=== PATIENT | female | born 1970 | race Caucasian/White ===

== ENCOUNTER → 2016-09-14 | Outpatient (CLI) | payer OTHER | LOC: FIMAGING 10:55 | DX: Z12.31 Encounter for screening mammogram for malignant neoplasm of breast (principal); Z80.3 Family history of malignant neoplasm of breast | CPT/HCPCS: G0202 ==

== ENCOUNTER 2016-10-01 18:59 | Emergency (ER) | payer OTHER ==
[2016-10-01 19:07] VITALS: RESP 16; TEMP 98.2
--- NOTE | 2016-10-01 19:20 | EDPHY ---
HPI/HX/ROS/PE/MDM Narrative: CHIEF COMPLAINT: Possible allergic reaction; pruritic rash HPI: The patient is a 45 y/o female complaining of possible allergic reaction onset around 18:00, about 1 hour ago. She initially noticed symptoms shortly after petting a stray cat and then continuing on to her friend's house to take care of her friend's cat. She developed itchy eyes and hands within 5 minutes of arriving at her friend's house. The itching spread to her face, lips, scalp, and ears. She immediately went home and took 50mg Benadryl, but continues to have itching and redness to her face and hands. 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 She notes she ate hummus at 15:00 today, which might have contained cumin. She denies any difficulty breathing or swallowing. REVIEW OF SYSTEMS: Aside from elements discussed in the HPI, a comprehensive 10-point review of systems was reviewed and is negative. PMH: Allergy to cumin, otherwise negative SOCIAL HISTORY: , lives in [place] Prior medical records reviewed including ED visit 09/17/11 for syncope. PHYSICAL EXAM: General:Patient is alert, in no acute distress. ENT:Eyes are normal to inspection. ENT inspection normal. No angioedema. No stridor. Neck: Normal inspection. Full range of motion. Respiratory:No respiratory distress. Breath sounds normal bilaterally. No wheezes. Cardiovascular: Regular rate and rhythm. Strong peripheral pulses. Normal cap refill. Abdomen:The abdomen is nontender to palpation. There are no peritoneal signs. Back: Normal to inspection. No tenderness to palpation. Skin: Normal color. Warm and dry. Redness to anterior chest and back without rudi urticaria. Extremities: Normal appearance. Full range of motion. Neuro: Oriented x3. Normal motor function. Normal sensory function. 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 Her symptoms began within 5 minutes of contact with cats, but she did eat hummus about 3 hours prior to symptom onset and notes it may have had cumin in it. She has no airway involvement and her breath sounds are clear. She does not have obvious urticaria. Plan for standard allergic reaction care including 25mg IV Benadryl, 125mg IV Solumedrol, 50mg IV Zantac, and 1L IV NS. We will monitor for rebound reaction over the next 1-2 hours. Reassessed patient. She is well-appearing and her rash has resolved. She feels ready to go home. She will be discharged with standard allergic reaction instructions and recommendation to follow up with her PCP or senior process control tech this week. She already has an EpiPen available to her. Return precautions given. She is comfortable with this plan. - Data Points Medications Given: Discontinued Medications Diphenhydramine HCl (Benadryl Injection) 25 mg IVP EDNOW ONE Stop: 10/01/16 19:22 Last Admin: 10/01/16 19:32 Dose: 25 mg Sodium Chloride (Ns) 1,000 mls @ 0 mls/hr IV ONCE ONE PRN Reason: Wide Open Stop: 10/01/16 19:22 Last Admin: 10/01/16 19:32 Dose: 1,000 mls Methylprednisolone Sodium Succinate (Solu-Medrol) 125 mg IVP EDNOW ONE Stop: 10/01/16 19:22 Last Admin: 10/01/16 19:32 Dose: 125 mg Ranitidine HCl (Zantac) 50 mg IVP EDNOW ONE Stop: 10/01/16 19:22 Last Admin: 10/01/16 19:32 Dose: 50 mg General Time Seen by Provider: 10/01/16 19:10 Initial Vital Signs: Initial Vital Signs Temperature (C) 36.8 C 10/01/16 19:03 Heart Rate 102 H 10/01/16 19:03 Respiratory Rate 16 10/01/16 19:03 Blood Pressure 112/75 10/01/16 19:03 O2 Sat (%) 94 10/01/16 19:03 O2 Delivery Mode Room Air Allergies/Adverse Reactions: acetaminophen [From [facility]] Allergy (Mild, Verified 10/01/16 19:07) Other-Enter Comments dichloralphenazone [From [facility]IN] Allergy (Mild, Verified 10/01/16 19:07) Other-Enter Comments isometheptene mucate [From [facility]] Allergy (Mild, Verified 10/01/16 19:07) Other-Enter Comments meloxicam [From Mobic] Allergy (Unknown, Verified 10/01/16 19:07) Unknown CUMIN SPICE Allergy (Severe, Uncoded 08/27/12 15:09) Anaphylaxis Home Medications: Medication Instructions Recorded *Veterinary Surgeon Completed 08/25/12 08/25/12 Sertraline HCl 100 mg PO Q2D 08/25/12 Sertraline HCl [Zoloft 100mg (RX)] 150 mg PO Q2D 08/25/12 Albuterol [Proventil Inhaler (RX)] 2 puffs IH PRN PRN 08/27/12 Departure - Departure Disposition: Home, Routine, Self-Care Clinical Impression: Allergic reaction Qualifiers: Encounter type: initial encounter Qualified Code(s): T78.40XA - Allergy, unspecified, initial encounter Condition: Good Instructions: General Allergic Reaction (ED) Additional Instructions: Follow-up with your primary doctor within 72 hours. Use [id number] Benadryl as directed for itching. Return to the Emergency Department for shortness of breath, difficulty swallowing, difficulty breathing, worsening of rash, fever or other worsening of condition. When symptoms have completely subsided, follow up with an senior process control tech soon as possible to determine the cause of the allergic reaction. Use EpiPen in case of allergic emergency. Referrals: Rishabh Mojica MD [Primary Care Provider] - As per Instructions Report Scribed for: Isac Perez Report Scribed by: Carli Wheeler Date of Report: 10/01/16 Time of Report: 19:20 Physician Review and Approval Statement: Portions of this note were transcribed by an ED scribe. I personally performed the history, physical exam, and medical decision making; and confirm the accuracy of the information in the transcribed note.
[2016-10-01] MEDS: RANITIDINE 50 MG/2 ML VIAL IVP ONE (19:32)
[2016-10-01] MEDS: methylPREDNISolone SOD SUCC 125 MG/2 ML VIAL IVP ONE (19:32)
[2016-10-01] MEDS: NS 1,000 ML IV ONE (19:32)
[2016-10-01 21:14] VITALS: BP 118/75; PULSE 80; O2SAT 94
== END 2016-10-01 21:13 | disposition home or self-care (01) ==
DX: T78.40XA Allergy, unspecified, initial encounter (principal)
CPT/HCPCS: 96374; J1200; J2780

== ENCOUNTER → 2017-09-16 | Outpatient (CLI) | payer OTHER | LOC: FIMAGING 11:29 | PROVIDERS: ATTEND Obstetrics & Gynecology | DX: Z12.31 Encounter for screening mammogram for malignant neoplasm of breast (principal) ==

== ENCOUNTER → 2018-04-04 | Outpatient (CLI) | payer OTHER | LOC: BMCIMAGING 11:21 | PROVIDERS: ATTEND Internal Medicine | DX: M84.375A Stress fracture, left foot, initial encounter for fracture (principal); M20.12 Hallux valgus (acquired), left foot; M21.612 Bunion of left foot ==